=== PATIENT | male | born 1975 | race Two or more races ===

== ENCOUNTER 2017-01-18 20:50 | Emergency (ER) | payer SELFPAY ==
[~2017-01-18] VITALS: Ht 185.4 cm; Wt 122.5 kg
[2017-01-18 21:00] VITALS: BP 139/85
[2017-01-19] MEDS ORDERED: TETANUS-DIPTH-ACEL PERTUSSIS 0.5ML SYRG IM ONE (02:00)
== END 2017-01-19 02:25 | disposition home or self-care (01) ==
LOC: ER 20:54
DX: S61.211A Laceration without foreign body of left index finger without damage to nail, initial encounter (principal); W26.0XXA Contact with knife, initial encounter; Y93.89 Activity, other specified; Y99.8 Other external cause status; Y92.89 Other specified places as the place of occurrence of the external cause; Z23 Encounter for immunization
CPT/HCPCS: 12002; 90471; 90715

== ENCOUNTER 2017-01-31 09:07 | Emergency (ER) | payer SELFPAY ==
[~2017-01-31] VITALS: Ht 185.4 cm; Wt 124.7 kg
[2017-01-31 09:31] LABS: Basophils # (auto) 0.1 uL; Basophils % (auto) 0.7 % (0.0-2.0); Eosinophils # (auto) 0.2 uL; Eosinophils % (auto) 2.1 % (0.0-7.0); Hematocrit 43.8 % (41.0-53.0); Hemoglobin 14.8 g/dL (13.5-17.5); Lymphocytes # (auto) 2.2 uL; Lymphocytes % (auto) 27.5 % (10.0-50.0); Mean Corpuscular Hgb Conc. 33.8 g/dL (32.0-36.0); Mean Corpuscular Volume 85.6 fL (80.0-100.0); Mean Platelet Volume 7.7 fL (7.4-10.4); Monocytes # (auto) 0.3 uL; Monocytes % (auto) 3.6 % (0.0-12.0); Neutrophils # (auto) 5.2 uL; Neutrophils % (auto) 66.1 % (37.0-80.0); Platelet Count (auto) 323 10^3/uL (140-450); Red Cell Distribution Width 13.1 % (11.6-16.0); White Blood Cell 7.9 10^3/uL (4.4-10.8)
[2017-01-31] MEDS ORDERED: LORazepam 2MG/ML-1ML VIAL IV ONE (09:45)
[2017-01-31] MEDS ORDERED: ONDANSETRON HCL 4 MG/2 ML VIAL IV ONE (09:45)
[2017-01-31 10:21] LABS: Albumin 3.9 g/dL (3.4-5.0); BUN/Creatinine Ratio 13.6; Bilirubin, Total 0.4 mg/dL (0.2-1.0); Calcium 8.9 mg/dL (8.5-10.1); Potassium 4.1 mmol/L (3.5-5.1); Total Protein 7.4 g/dL (6.4-8.2)
[2017-01-31] MEDS ORDERED: MECLIZINE HCL 25 MG TAB PO ONE (11:15)
[2017-01-31 11:23] VITALS: BP 117/84
== END 2017-01-31 11:43 | disposition home or self-care (01) ==
LOC: ER 09:07
DX: R42 Dizziness and giddiness (principal); J45.909 Unspecified asthma, uncomplicated
CPT/HCPCS: 36415; 71010; 80053; 85025; 93005; 94761; 96374; 96375; 99285; J2060; J2405; J8597

== ENCOUNTER 2025-03-18 19:04 | Emergency (ER) | payer BC, OTHER ==
[~2025-03-18] VITALS: Ht 185.4 cm; Wt 103.5 kg
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
--- NOTE | 2025-03-18 20:19 | DVH ---
EXAM: CT HEAD WITHOUT CONTRAST INDICATION: head injury TECHNIQUE: CT of the head without intravenous contrast. Radiation Dose : 1. Head: CT Dose: CTDI volume is 61.23 mGy. Dose-length product is 1730.05 mGy*cm The dose indicators for CT are the volume Computed Tomography (CT) Dose Index (CTDIvol) and the Dose Length Product (DLP), and are measured in units of mGy and mGy-cm, respectively. These indicators are not patient dose, but values generated from the CT scanner acquisition factors. The report includes radiation exposure data for exposures received during this examination. COMPARISON: None FINDINGS: There is no evidence of acute intracranial hemorrhage, extra-axial collection, mass effect, midline s hift, herniation or hydrocephalus. The ventricles, sulci and cisterns are age appropriate. The smith-white differentiation is intact. Patchy periventricular and subcortical white matter hypoattenuation is nonspecific but may be related to small vessel ischemic disease. The visualized paranasal sinuses and mastoid air cells are clear. The surrounding soft tissues and osseous structures are unremarkable. IMPRESSION: 1. No acute intracranial abnormality. Radiation optimization: All CT scans at this facility use at least one of these dose optimization hai hniques: automated exposure control mA and/or kV adjustment per patient size (includes targeted exam s where dose is matched to clinical indication) or iterative reconstruction.
--- NOTE | 2025-03-18 20:25 | DVH ---
EXAM: CT CERVICAL WITHOUT CONTRAST INDICATION: neck pain EXAM DATE: 03/18/2025 07:53 PM COMPARISON: None TECHNIQUE: Multiple axial CT images of the cervical spine were obtained using bone algorithm. Axial a nd coronal reformatting was done. Bone and soft tissue windows were reviewed. Radiation Dose Information: CT Dose: CTDI volume is 22 mGy. Dose-length product is 1730 mGy*cm FINDINGS: The cervical alignment is intact. No acute cervical spine fracture is identified. The vertebral body heights are intact. No suspicious osseous lesions are identified. Mild degenerative changes throughout the cervical spine. There is no prevertebral soft tissue swelling. IMPRESSION: 1. No evidence of acute cervical spine fracture or traumatic malalignment. All CT scans at this medical facility are performed using dose modulation techniques as appropriate t o a performed exam including the following: Automated exposure control was utilized; adjustment of th e MA and/or KV according to patient size; and use of iterative reconstruction technique.
[2025-03-18 21:43] VITALS: BP 130/87; PULSE 92; RESP 17; TEMP 98.5; O2SAT 98
[2025-03-18] MEDS ORDERED: ACET500T58 PO (21:44)
[2025-03-18] MEDS ORDERED: CYCL-837 PO (21:44)
== END 2025-03-18 21:53 | disposition home or self-care (01) ==
LOC: ER 19:04
DX: S16.1XXA Strain of muscle, fascia and tendon at neck level, initial encounter (principal); S00.03XA Contusion of scalp, initial encounter; J45.909 Unspecified asthma, uncomplicated; V89.2XXA Person injured in unspecified motor-vehicle accident, traffic, initial encounter; Y93.89 Activity, other specified; Y92.410 Unspecified street and highway as the place of occurrence of the external cause; Y99.8 Other external cause status
CPT/HCPCS: 70450; 72125